=== PATIENT | female | born 1940 | race Caucasian/White ===

== ENCOUNTER 2024-06-22 13:20 | Observation (INO) | payer MEDICARE ==
[2024-06-22] MEDS ORDERED: CIPROFLOXACIN HCL 250 MG TAB ONE (21:00)
[2024-06-22] MEDS ORDERED: FAMOTIDINE 20 MG TAB ONE (23:18)
[2024-06-22] MEDS ORDERED: PANTOPRAZOLE 40 MG TABLET PO ONE (23:18)
[2024-06-23] MEDS ORDERED: MAGNESIUM OXIDE 400 MG TAB ONE (08:54)
[2024-06-23] MEDS ORDERED: MULTIVITAMINS, THERA 1 EACH TAB ONE (08:55)
[2024-06-23] MEDS ORDERED: LACTOBACILLUS ACIDOPHILUS/PECT 1 EACH CAPSULE PO ONE (08:55)
[2024-06-23] MEDS ORDERED: CYANOCOBALAMIN 500 MCG TAB ONE (08:55)
[2024-06-23] MEDS ORDERED: PANTOPRAZOLE 40 MG TABLET PO ONE ×2 (08:55→20:01)
[2024-06-23] MEDS ORDERED: ASPIRIN 81 MG ONE (08:55)
[2024-06-23] MEDS ORDERED: ATORVASTATIN 10 MG TAB ONE (08:55)
[2024-06-23] MEDS ORDERED: CALCIUM CARBONATE 500 MG CHEWABLE PO ONE (08:56)
[2024-06-23] MEDS ORDERED: CIPROFLOXACIN HCL 250 MG TAB ONE (09:00)
[2024-06-23] MEDS ORDERED: FAMOTIDINE 20 MG TAB ONE (20:01)
[2024-06-24] MEDS ORDERED: LACTOBACILLUS ACIDOPHILUS/PECT 1 EACH CAPSULE PO ONE (08:24)
[2024-06-24] MEDS ORDERED: PANTOPRAZOLE 40 MG TABLET PO ONE (08:24)
[2024-06-24] MEDS ORDERED: MAGNESIUM OXIDE 400 MG TAB ONE (08:24)
[2024-06-24] MEDS ORDERED: ATORVASTATIN 10 MG TAB ONE (08:24)
[2024-06-24] MEDS ORDERED: ASPIRIN 81 MG ONE (08:24)
[2024-06-24] MEDS ORDERED: MULTIVITAMINS, THERA 1 EACH TAB ONE (08:24)
[2024-06-24] MEDS ORDERED: CYANOCOBALAMIN 500 MCG TAB ONE (08:24)
[2024-06-24] MEDS ORDERED: CALCIUM CARBONATE 500 MG CHEWABLE PO ONE (08:25)
[2024-06-24] MEDS ORDERED: CIPROFLOXACIN HCL 250 MG TAB ONE (09:00)
--- NOTE | 2024-07-14 15:46 | CT ---
Patient Karoline Woodruff ID [id number] Order # EXAMINATION TYPE: CT angio head neck DATE OF EXAM: 06/22/2024 COMPARISON: No comparison available on downtime PACS. INDICATION: Left arm weakness hypertension DLP: 1481.5 mGycm, Automated exposure control for dose reduction was used. CONTRAST: None CT of the brain is performed utilizing 3 mm thick sections through the posterior fossa and 3 mm thick sections through the remaining calvarium. Study is performed within 24 hours of arrival to the hosp [facility]. No abnormal hyperdensity is present to suggest an acute intracranial hemorrhage. No mass lesion is evident. No acute infarcts are evident. Ventricles and sulci are appropriate for the patient age. Paranasal sinuses and mastoid air cells within the [id number] are clear. IMPRESSION: 1. No acute intracranial process. Follow up MRI can be performed as clinically indicated. EXAMINATION TYPE: CT angio head neck DATE OF EXAM: 06/22/2024 HISTORY: Arm weakness COMPARISON: No comparison available on downtime PACS. CT DLP: 1481.5 mGycm. Automated Exposure Control for Dose Reduction was Utilized. TECHNIQUE: CTA scan of the neck is performed with IV Contrast, patient injected with 65 mL of Isovue 370, axial images are obtained, coronal and sagittal reformatted images are reviewed. Three-D recons tructed images are created on an independent workstation and reviewed. Source images are reviewed. FINDINGS: Carotid/Vascular Structures: There is a 3 vessel arch. Common carotid arteries bifurcate into internal and external carotid arteries without significant elena w limiting stenosis. Vertebral arteries are codominant. Internal carotid arteries and vertebral arteries are patent to the skull base. Cervical of [place]: Vertebral basilar system appears normal. Posterior cerebral vasculature is unrema rkable. Internal carotid arteries bifurcate normally into A1 and M1 segments. A2 segments are normal. The anterior communicating artery is patent. The right posterior communicating artery is patent. The left posterior communicating artery is smaller but patent. IMPRESSION: 1. No flow-limiting stenosis bilateral carotid bifurcations. 2. Normal [place] of [place] NASCET criteria was used in interpretation of this exam?
--- NOTE | 2024-07-14 15:52 | MR ---
Patient: Karoline Woodruff Ordering Physician: Unknown, Unknown ID: [id number] Phone, Pager: Phone: N/A Pager: N/A : 1940 Age/Gender: 83Y, F Primary Location: N/A Procedure: MR brain wo con Feroz dy Date: 06/23/2024 12:12:39 PM EXAMINATION TYPE: MR brain wo con DATE OF EXAM: 06/24/2024 11:35 AM CLINICAL INDICATION: numbness and tingling left side COMPARISON: None. TECHNIQUE: Multi planar, multi sequence imaging was performed through the brain including: T1, T2, In version recovery, Diffusion weighted imaging, and gradient echo imaging. No gadolinium was given. FINDINGS: The koch-white junctions, ventricular system, basal cisterns appear unremarkable. Scattered foci of high T2 signal intensity are seen within the periventricular white matter. Midline structures show n o abnormality. Diffusion-weighted imaging shows no evidence of restricted diffusion. The susceptibili ty weighted images do not reveal any evidence for micro-hemorrhage. The bone marrow signal is within normal limits. Paranasal sinuses and mastoid air cells: No significant paranasal sinus disease. Visualized orbits: Bilateral aphakia IMPRESSION: 1. No evidence of intracranial mass or acute/subacute infarct. 2. Nonspecific white matter changes, likely secondary to small vessel ischemic disease.
--- NOTE | 2024-07-18 11:13 | CA ---
Transthoracic Echo Report Name: Karoline Woodruff Age: 83 Gender: F : 1940 Exam Date: 06/23/2024 15:45 Exam Location: [facility] Ht (in): 66 Wt (lb): 185 Ordering Physician: Attending/Referring Phys: [employer] Anali Roger RDCS Procedure CPT: Indications: Cardiac Hx: Technical Quality: Good Contrast 1: Total Dose (mL): Contrast 2: Total Dose (mL): MEASUREMENTS (Male / Female) Normal Values 2D ECHO LV Diastolic Diameter PLAX 4.6 cm 4.2 - 5.9 / 3.9 - 5.3 cm LV Systolic Diameter PLAX 3.1 cm IVS Diastolic Thickness 1.1 cm 0.6 - 1.0 / 0.6 - 0.9 cm LVPW Diastolic Thickness 1.1 cm 0.6 - 1.0 / 0.6 - 0.9 cm LV Relative Wall Thickness 0.5 RV Internal Dim ED PLAX 3.0 cm LA Systolic Diameter LX 3.0 cm 3.0 - 4.0 / 2.7 - 3.8 cm LV Diastolic Volume MOD 4C 84.6 cm??? LV Systolic Volume MOD 4C 37.4 cm??? LV Ejection Fraction MOD 4C 55.8 % LV Cardiac Index MOD 4C 1274.6 cm???/min???m??? LV Diastolic Length 4C 7.7 cm LV Systolic Length 4C 6.4 cm LV Diastolic Volume MOD 2C 85.0 cm??? LV Systolic Volume MOD 2C 46.2 cm??? LV Ejection Fraction MOD 2C 45.7 % LV Cardiac Index MOD 2C 1048.6 cm???/min???m??? LV Diastolic Length 2C 7.6 cm LV Systolic Length 2C 6.3 cm M-MODE Aortic Root Diameter MM 3.2 cm LA Systolic Diameter MM 2.1 cm LA Ao Ratio MM 0.7 DOPPLER AV Peak Velocity 155.8 cm/s AV Peak Gradient 9.7 mmHg Mitral E Point Velocity 72.4 cm/s Mitral A Point Velocity 78.8 cm/s Mitral E to A Ratio 0.9 MV Deceleration Time 300.0 ms TR Peak Velocity 244.8 cm/s TR Peak Gradient 24.0 mmHg Right Ventricular Systolic Press 34.0 mmHg FINDINGS Left Ventricle Left ventricular ejection fraction is estimated at 55-60 %. Left ventricular cavity size normal. Normal left ventricular systolic function with no obvious regional wall motion abnormalities. Right Ventricle Normal right ventricular size. Right Atrium Normal right atrial size. No right atrial thrombus or mass seen. Left Atrium Normal left atrial size. No left atrial thrombus or mass present. Mitral Valve Structurally normal mitral valve. Mild mitral regurgitation.mitral annular calcification. Aortic Valve Trileaflet aortic valve. No aortic valve stenosis or regurgitation.aortic valve sclerosis. Tricuspid Valve Structurally normal tricuspid valve. Mild tricuspid regurgitation. Pulmonic Valve Structurally normal pulmonic valve. No pulmonic regurgitation. Pericardium No pericardial or pleural effusion. Aorta Normal size aortic root and proximal ascending aorta. CONCLUSIONS 1. Normal left ventricular size and systolic function 2. Mild mitral and tricuspid regurgitation Previewed by: Dr. Addi Lyon MD (Electronically Signed) Final Date: 24 June 2024 09:16
--- NOTE | 2024-07-22 18:36 | US ---
Patient Karoline Woodruff ID [id number] 1940 Age 83 years Gender F Order # EXAMINATION TYPE: US venous doppler duplex LE BI DATE OF EXAM: 06/23/2024 12:35 PM COMPARISON: NONE CLINICAL INDICATION: Elevated d-dimer SIDE PERFORMED: Bilateral TECHNIQUE: The lower extremity deep venous system is examined utilizing real time linear array sonog az with graded compression, doppler sonography and color-flow sonography. VESSELS IMAGED: Common Femoral Vein Deep Femoral Vein Greater Saphenous Vein * Femoral Vein Popliteal Vein Small Saphenous Vein * Proximal Calf Veins (* superficial vessels) Right Leg: Negative for DVT Left Leg: Negative for DVT IMPRESSION: 1. Bilateral lower extremity ultrasound negative for deep venous thrombosis.
--- NOTE | 2024-07-23 08:52 | XR ---
Patient Karoline Woodruff ID [id number] Order # EXAMINATION TYPE: XR chest 2V DATE OF EXAM: 06/22/2024 COMPARISON: No comparison available on downtime PACS. INDICATION: Left arm weakness TECHNIQUE: Frontal and lateral views of the chest are obtained. FINDINGS: The heart size is normal. The pulmonary vasculature is normal. There is some increased opacity over the posterior lower spine on the lateral projection. Posterior i nfiltrate may be present not clearly evident on the AP projection. There is a suggestion of a hiatal hernia present.. Electronic device midline. IMPRESSION: 1. Clinical correlation recommended for posterior infiltrate. 2. Possible hiatal hernia.
== END 2024-06-24 17:28 | disposition home or self-care (01) ==
LOC: UNDOADMOB 13:20 → 6NMEDSUR 13:20 → UNDODISOB 06-24 17:28
PROVIDERS: ADMIT Hospitalist; ATTEND Hospitalist
DX: R20.2 Paresthesia of skin (principal); R20.0 Anesthesia of skin; I10 Essential (primary) hypertension; N39.0 Urinary tract infection, site not specified; E78.5 Hyperlipidemia, unspecified; R07.89 Other chest pain; K21.9 Gastro-esophageal reflux disease without esophagitis; R00.1 Bradycardia, unspecified; R42 Dizziness and giddiness; Z79.82 Long term (current) use of aspirin; Z79.899 Other long term (current) drug therapy; Z86.69 Personal history of other diseases of the nervous system and sense organs
CPT/HCPCS: 70496; 70498; 70551; 71046; 84145; 93005; 93306; 93970; 99285

== ENCOUNTER 2024-11-27 09:00 | Day surgery (SDC) | payer MEDICARE ==
[~2024-11-27 09:00] MED LIST: LIDOCAINE 1% (10MG/ML) FOR IV START INTRADERMA PRN
[2024-11-27 09:35] VITALS: TEMP 97.7
[2024-11-27] MEDS: LACTATED RINGERS 1,000 ML IV SCH (09:47)
[2024-11-27] MEDS: IV FLUID CONTINUATION 1,000 ML IV ONE (09:48)
[2024-11-27] MEDS ORDERED: PROPOFOL 10 MG/ML 20 ML VIAL IV ONE (10:01)
--- NOTE | 2024-11-27 10:29 | P.PCN ---
Date of Procedure: 11/27/24 Procedure(s) Performed: BRIEF HISTORY: Patient is a 83-year-old pleasant white female scheduled for an elective colonoscopy as a part of screening for colon cancer/positive Cologuard. PROCEDURE PERFORMED: Colonoscopy with biopsy PREOPERATIVE DIAGNOSIS: Screening for colon cancer/positive Cologuard. IV sedation per Anesthesia. PROCEDURE: After informed consent was obtained, the patient, was brought into the endoscopy unit. IV sedation was administered by Anesthesia under continuous monitoring. Digital rectal examination was normal. Initially the Olympus CF-160 flexible video colonoscope was then inserted in the rectum, gradually advanced into the cecum without any difficulty. Careful examination was performed as the scope was gradually being withdrawn. Ileocecal valve and the appendiceal orifice were visualized and appeared normal. Prep was excellent. Mucosa of the cecum, appeared normal. In the ascending colon there was a 5 mm polyp that was removed by cold biopsy. In the hepatic flexure there was another 4 mm polyp that was removed by cold biopsy. Rest of the ascending colon, transverse colon, descending colon, sigmoid colon, and rectum appeared normal. Katter sigmoid diverticulosis. Retroflexion was performed in the rectum and no lesions were seen. The patient tolerated the procedure well. IMPRESSION: 5 mm ascending colon polyp status post cold biopsy 4 mm hepatic flexure polyp status post cold biopsy Scattered sigmoid diverticulosis RECOMMENDATIONS: Findings of this examination were discussed with the patient as well as her family. She was advised to follow with the biopsy results. Continue with a high-fiber diet and fiber supplements on a regular basis..
[2024-11-27 10:47] VITALS: BP 121/76; PULSE 70; RESP 18
== END 2024-11-27 11:16 | disposition home or self-care (01) ==
LOC: ORWHC2ENDO 09:00
PROVIDERS: ATTEND Internal Medicine Gastroenterology
DX: Z12.11 Encounter for screening for malignant neoplasm of colon (principal); D12.2 Benign neoplasm of ascending colon; D12.3 Benign neoplasm of transverse colon; K57.30 Diverticulosis of large intestine without perforation or abscess without bleeding; I10 Essential (primary) hypertension; E78.5 Hyperlipidemia, unspecified; K21.9 Gastro-esophageal reflux disease without esophagitis; Z79.899 Other long term (current) drug therapy; Z86.0100 Personal history of colon polyps, unspecified; Z88.1 Allergy status to other antibiotic agents; Z88.2 Allergy status to sulfonamides
CPT/HCPCS: 88305; 45380; J2704